=== PATIENT | male | born 1965 | race Caucasian/White ===

== ENCOUNTER 2018-06-18 14:22 | Emergency (ER) | payer BC, SELFPAY ==
[2018-06-18 14:23] VITALS: BP 164/110; PULSE 73; RESP 16; TEMP 36.3; O2SAT 97; BMI 29.5
[2018-06-18 15:23] LABS: Absolute Lymphocyte Count 2.17 X10^3/ul (0.83-4.51); Absolute Neutrophil Count 7.1 X10^3/uL (2.0-7.7); Basophil# 0.06 X10^3/uL; Basophil% 0.5 % (0-1); Eosinophil# 0.91 X10^3/uL; Eosinophils% 8.1 % (0-5); Hematocrit 53.1 % (40-54); Lymphocyte # 2.17 X10^3/ul (4.0); Lymphocyte % 19.2 % (19-41); Mean Corp Hgb Conc 34.1 g/gl (32-36); Mean Corpuscular Hgb 31.9 pg (27.0-32.0); Mean Corpuscular Volume 93.7 fL (80-94); Mean Platelet Vol. 9.7 fl (6.2-12.0); Monocyte# 1.02 X10^3/uL; Neutrophil # 7.09 X10^3/uL (2.7-7.7); Neutrophil % 62.8 % (47-70); Platelet Count 271 K/mm3 (150-450); RBC Distribution Width CV 12.7 % (11.6-14.6); RBC Distribution Width SD 43.3 fl (35.1-43.9); Red Blood Count 5.67 M/mm3 (4.6-6.2); White Blood Count 11.3 K/mm3 (4.4-11.0)
[2018-06-18 15:26] LABS: Hemoglobin 18.1 g/dl (13.0-16.5); POSITIVE COUNT NO; POSITIVE DIFFERENTIAL NO; POSITIVE MORPHOLOGY NO
[2018-06-18 15:33] LABS: Anion Gap 7 (5-15); BUN 11 mg/dL (7-18); Calcium,Total 8.9 mg/dL (8.5-10.1); Chloride 106 mmol/L (98-107); EST Glomerular Filtration Rate 83 mL/min (>60); Est Glom Filt Rate - Afr Amer 101 mL/min (>60); Estimated Creatinine Clearance 97.66 ml/min; Glucose 99 mg/dL (74-106); Potassium 4.4 mmol/L (3.5-5.1); Sodium Level 139 mmol/L (136-145)
--- NOTE | 2018-06-18 16:26 | CT_ITS ---
STUDY: CT ABDOMEN AND PELVIS WITH CONTRAST REASON FOR EXAM: Male, 52 years old. Left upper quadrant pain RADIATION DOSAGE (If Supplied By Facility): CTDIvol = ( 15.93 ) mGy, DLP = ( 1723.30 ) mGycm TECHNIQUE: Transaxial images were obtained from the dome of the diaphragm to the symphysis pubis without oral contrast. 100 ml of Isovue 370 contrast was administered. Sagittal and coronal images were reconstructed. Individualized dose optimization techniques were used for this CT. COMPARISON: November 18, 2015 CT abdomen FINDINGS: The visualized lung bases are unremarkable. The visualized portions of the heart are within normal limits. Normal liver. Normal gallbladder and extrahepatic biliary system. Normal spleen. Normal pancreas. Normal bilateral adrenal glands. There is a 0.6 cm cyst of the lower pole of the right kidney. Normal left kidney. Normal visualized stomach. Normal small intestine. Normal colon. The appendix is visualized and appears normal. Normal abdominal aorta. Normal inferior vena cava. Normal retroperitoneum. There is nodular wall thickening and 1.2 cm mass of the urinary bladder wall, series 3 image 106/127 There are prostatic calcifications. There is no free fluid in the abdomen or pelvis. There is a small umbilical hernia containing fat. Normal osseous structures. CT/Abdomen/Pelvis W IV Cont ONLY IMPRESSION: Nodular thickening and mass of the wall of the urinary bladder. Cystoscopic correlation recommended. No hydronephrosis. No obstruction. Electronically Signed: Néstor Evans MD at 17:25 EST , Service support ,
--- NOTE | 2018-06-18 16:26 | CT_ITS ---
STUDY: CTA CHEST REASON FOR EXAM: Male, 52 years old. Shortness of breath. RADIATION DOSAGE (If Supplied By Facility): CTDIvol = ( 15.93 ) mGy, DLP = ( 1723.30 ) mGycm TECHNIQUE: The examination was performed with the intravenous administration of 100 ml of Isovue 370 contrast material. Post-processing of the angiographic images was performed, with multiplanar reformation and 3D reconstruction. Individualized dose optimization techniques were used for this CT. COMPARISON: None. FINDINGS: There is limited enhancement of the main pulmonary artery and right and left pulmonary arteries. There is limited enhancement of the bilateral peripheral pulmonary arteries. There is no demonstrated pulmonary embolism. There is aneurysmal dilatation of the ascending aorta. The transverse diameter of the ascending aorta measures 41 mm's. There is no demonstrated aortic dissection. Normal heart and pericardium. Normal mediastinum. Normal hilar regions. Normal visualized trachea and bronchi. The lungs are well expanded. There is a 0.3 cm left upper lobe nodule, coronal series 5 image 113/167 Normal pleura. Normal chest wall structures. Normal osseous structures. Normal visualized upper abdomen. CT/CTA Chest W/WO Contrast IMPRESSION: CTA chest examination, without a demonstrated pulmonary embolism or arterial dissection. Suboptimal enhancement of the pulmonary arteries. Aneurysmal dilatation of the ascending aorta. Electronically Signed: Néstor Evans MD at 17:37 EST , Service support ,
[2018-06-18 16:34] LABS: Lipase 201 U/L (73-393)
[2018-06-18 16:39] LABS: AST(SGOT) 29 U/L (15-37); Alanine Aminotransfer ALT/SGPT 53 U/L (16-61); Albumin, Serum 3.9 g/dL (3.2-5.0); Alkaline Phosphatase 74 U/L (45-117); Bilirubin, Direct 0.18 mg/dL (0.00-0.30); Globulin 4.3 g/dL (2.2-4.2); Protein, Total 8.2 g/dL (6.4-8.2)
--- NOTE | 2018-06-18 16:41 | ED.VISSUMM ---
- ER Visit Summary Date of Service: 06/18/18 Chief Complaint: Abdominal pain History of Present Illness: The patient is a 52 M presenting with abdominal pain x 1 week. Patient has left upper quadrant abdominal pain. He has had cough prior to this starting. He denies nausea, vomiting, diarrhea. He states the pain is worse with eating, coughing and different positions. He has pain with deep inspiration. He had travel to [place] at the first part of the month. Denies chest pain or shortness of breath. Physical Examination: Vitals are stable. Patient is afebrile. Alert no acute distress. HEENT exam is unremarkable. Neck is supple. Lungs are clear and equal bilaterally. Heart is regular rate and rhythm. Abdomen is soft left upper quadrant tenderness with no rebound or guarding Extremities are unremarkable. Skin is warm and dry. No rash No focal neurologic deficit. Remainder of exam is unremarkable. Emergency Department Course and Treatment: Patient was given morphine, Zofran IV. CBC normal except white count 11.3, hemoglobin 18.1. Chemistries unremarkable. Liver lipase are normal. Urinalysis shows trace blood, 0 white cells, 0-5 red blood cells. CTA chest without a demonstrated pulmonary embolism or arterial dissection. Suboptimal enhancement of the pulmonary arteries. Aneurysmal dilatation of the ascending aorta. CT abdomen/pelvis shows nodular thickening and mass of the wall of the urinary bladder. Cystoscopic correlation recommended. No hydronephrosis. No obstruction. On reevaluation, patient is resting comfortably. He has a scheduled appointment with his primary care physician tomorrow. He is advised to follow-up with Dr. Lewis from vascular surgery and Dr. Moreira, urology. He is given prescription for Pepcid and Tessalon. He states the pain is much worse when he coughs. He is advised to return to ED for worsening complaints. Disposition: Discharge home Impression: Abdominal pain This note was generated with [employer] dictation software. It may contain incorrect words, spelling, and punctuation that were not noted in review of the chart prior to signing ED Disposition - Plan for ED Patient: Chief Complaint: Abd Pain Instructions: ED Abdominal Pain Unkn Cause Prescriptions: Benzonatate [Tessalon Perle] 200 mg PO TID PRN PRN #20 capsule PRN Reason: Cough Famotidine [Pepcid] 20 mg PO BID #28 tablet Referrals: Erasmo Lewis MD [STAFF PHYSICIAN] - Live Moerira MD [STAFF PHYSICIAN] - Corrie Zuluaga DO [Primary Care Provider] -
[2018-06-18] MEDS: Morphine 4 MG/ML Syringe IV (17:09)
[2018-06-18] MEDS: Ondansetron 4 MG/2 ML Vial IV (17:09)
[2018-06-18 17:22] LABS: Bacteria 0 SEEN /hpf (None Seen); Mucous, Urine 0 SEEN /hpf (<or=2+); Squamous Epithelial Cells - UA 0 SEEN /hpf (0-5); White Blood Cells 0 SEEN /hpf (0-5)
[2018-06-18 17:46] LABS: Color, Urine Yellow (Yellow); Glucose, Dipstick Normal (Normal); Ketone-Dipstick Negative (Negative); Leukocyte Esterase-Dipstick Negative /ul (Negative); Nitrite-Dipstick Negative (Negative); Occult Blood-Urine 25 /ul (Negative); Protein-Dipstick 30 mg/dl (Negative); Urine Bilirubin Dipstick Negative (Negative); Urine Clarity Clear (Clear); Urine Urobilinogen Normal (Normal)
[2018-06-18 18:00] LABS: Red Blood Cells-Urine 0-5 SEEN /hpf (0-5)
[2018-06-18 18:12] VITALS: BP 132/96; PULSE 72; RESP 16; O2SAT 95
--- NOTE | 2018-06-18 18:32 | ED.DEP ---
ED Disposition - Plan for ED Patient: Chief Complaint: Abd Pain Instructions: ED Abdominal Pain Unkn Cause Prescriptions: Benzonatate [Tessalon Perle] 200 mg PO TID PRN PRN #20 capsule PRN Reason: Cough Famotidine [Pepcid] 20 mg PO BID #28 tablet Referrals: Corrie Zuluaga DO [Primary Care Provider] - Erasmo Lewis MD [STAFF PHYSICIAN] - Live Moreira MD [STAFF PHYSICIAN] -
== END 2018-06-18 18:48 | disposition home or self-care (01) ==
PROVIDERS: Emergency Medicine; Emergency Provider Emergency Medicine; Family Provider Internal Medicine; PCP Internal Medicine
DX: R10.12 Left upper quadrant pain (principal); R05 Cough
CPT/HCPCS: 71275; 74177; 80048; 80076; 81001; 83690; 85025; 96374; 96375; 99283; Q9967; A4216; J2405

== ENCOUNTER → 2018-06-19 11:54 | Outpatient (CLI) | payer BC, SELFPAY ==
[2018-06-18 14:23] VITALS: BMI 29.5
--- NOTE | 2018-06-19 | CYSPIN_PTH ---
PATIENT: OCHOA MICHEL LOC: [facility] U#:[id number] AGE/SX: 59/M ROOM: RE06/19/[address]: Dr. Corrie Zuluaga DO : 1965 BED: DIS: SPEC #: [id number] RECD: 06/19/18 14:08 STATUS: THOMAS BOB #: [id number] BRAXTON: 06/19/18 00:[address]: Crorie Zuluaga DEPT: CYTOLOGY RECD BY: Aiden Donahue Tissues: Urine Procedures: Pap Stain (control) Special Stain Group II Cytospin Fluid HEADER OPERATION: Not noted PRE-OP DIAGNOSIS: Bladder mass TISSUE SUBMITTED: Urine for cytology DIAGNOSIS CYTOLOGY Bladder mass, urine for cytology, cytospin: Atypical degenerative cells present. See cytology study. CE:eric 06/20/18 COMMENT Case has been reviewed in consultation with Dr. Jimenez who concurs with the above diagnosis. IDC:AM CYTOLOGY STUDY Slides are reviewed. Sections demonstrate degenerative cellular debris and degenerative urothelial cells with atypia. The cytologic findings may reflect a degenerative urothelial neoplasm versus reactive process. Clinical correlation is recommended. CYTOLOGY GROSS Received is 50 ml of dark gold fluid labeled with the patient's name and and designated per the requisition as urine. Submitted for cytology preparation. / 06/19/18 TC:5 CPT: 00067
--- NOTE | 2018-06-19 11:59 | RAD_ITS ---
STUDY: X-RAY - UNILATERAL RIBS ( LEFT ) WITH CHEST REASON FOR EXAM: Male, 52 years old. Left rib pain TECHNIQUE - RIBS: 4 view(s) of the ribs. TECHNIQUE - CHEST: 1 view COMPARISON: None. FINDINGS - RIBS: Normal visualized ribs without a demonstrated fracture. FINDINGS - CHEST: The lungs are clear and expanded. There is no demonstrated pleural abnormality. Normal size heart. Normal mediastinum and jayashree. Normal visualized pulmonary arteries. Normal visualized aortic arch and descending thoracic aorta. Normal visualized thoracic spine. Normal visualized ribs, clavicles, and shoulders. There is no demonstrated abnormality of the visualized soft tissue structures of the upper abdomen. RAD/Ribs Uni Min 3V w/PA Chest IMPRESSION: RIBS: Normal x-ray examination of the ribs. No rib fractures CHEST: Normal x-ray examination of the chest. Electronically Signed: Sergio Pearson MD at 2:21 EST Tel , Service support ,
[2018-06-19 13:34] LABS: Cytology, Body Fluid / CSF SEE PATHOLOGY REPORT
== END ==
PROVIDERS: Family Provider Internal Medicine; PCP Internal Medicine; Referring Provider Internal Medicine; Visit Provider Internal Medicine
DX: R07.81 Pleurodynia (principal); N32.89 Other specified disorders of bladder
CPT/HCPCS: 71101; 88108; 88313

== ENCOUNTER 2018-07-26 13:52 | Day surgery (SDC) | payer BC, SELFPAY ==
[2018-07-19 11:40] VITALS: BP 144/88; PULSE 66; RESP 16; TEMP 36.7; O2SAT 96; BMI 30.2
--- NOTE | 2018-07-19 11:56 | SDCEKG_ITS ---
Test Reason : Blood Pressure : / mmHG Vent. Rate : 062 BPM Atrial Rate : 062 BPM P-R Int : 154 ms QRS Dur : 092 ms QT Int : 454 ms P-R-T Axes : 045 042 042 degrees QTc Int : 460 ms Normal sinus rhythm Normal ECG Confirmed by SUELLEN SLADE, FRANCIS ([id number]), magazine editor RADHA MOORE ([id number]) on 07/22/2018 2:51:49 PM Referred By: Live Moreira Confirmed By:FRANCIS KEN MD
[2018-07-19 12:38] LABS: Hematocrit 49.5 % (40-54); Mean Corp Hgb Conc 34.3 g/gl (32-36); Mean Corpuscular Hgb 32.2 pg (27.0-32.0); Mean Corpuscular Volume 93.8 fL (80-94); Mean Platelet Vol. 9.9 fl (6.2-12.0); Platelet Count 254 K/mm3 (150-450); RBC Distribution Width CV 12.9 % (11.6-14.6); RBC Distribution Width SD 43.2 fl (35.1-43.9); Red Blood Count 5.28 M/mm3 (4.6-6.2)
[2018-07-19 12:39] LABS: Scan Indicated on CBC? Y/N NO
[2018-07-19 12:46] LABS: International Normalized Ratio 0.9; Partial Thromboplast Time 27.5 Seconds (24.1-36.2); Prothrombin Time (Protime)PT. 12.4 SECONDS (11.7-14.9)
--- NOTE | 2018-07-26 | IMM_PTH ---
PATIENT: OCHOA MICHEL LOC: [facility] [place] U[place][id number] AGE/SX: 53/M ROOM: RE07/26/[address]: Dr. Live Moreira MD : 1965 BED: DIS: 07/26/2018 SPEC #: [id number] RECD: 07/30/18 12:18 STATUS: THOMAS REZach #: [id number] BRAXTON: 07/26/18 00:[address]: Live Moreira DEPT: IMMUNOHISTOCHEMISTRY RECD BY: Adeola Brush ENTERED: 07/30/18 12:19 SP TYPE: IMMUNO OTHR DR: Dr. Corrie Zuluaga, Tissues: Urinary bladder, NOS Procedures: CK8 (initial) SMA (add) CD34 (add) DESMIN (add) Vimentin (add) S-100 (add) PHYSICIAN & INSTITUTION [place] [id number] SPECIMEN INFORMATION: Tissue Source: Bladder tumor Clinical Info: Bladder tumor Specimen Number: [id number] #1 CPT code: 77270, 19194 x5 METHODOLOGY: Deparaffinized sections of prefer/formalin-fixed tissue or PAP/DQ stained slides are incubated with monoclonal/polyclonal antibodies/oligonucleotide probes. Localization is made via biotin free immunoperoxidase method. Appropriate controls are performed and reacted as expected. Results on target cell population are indicated in the following table: RESULTS: ANTIBODY / CLONE RESULT Block 1 CK8 ([id number]) negative Actin (1A4) positive Desmin (CE-R-11) positive Vimentin (V9) positive S-100 (4C4.9) negative CD34 (QBEnd-10) negative These tests were developed and their performance characteristics determined by [facility]. They may not have been cleared or approved by the U.S. Food and Drug Administration. The FDA has determined that such clearance or approval is not necessary. INTERPRETATION: Bladder tumor, TUR: Consistent with benign smooth muscle lesion, favor leiomyoma. SJ:eric 07/30/18
--- NOTE | 2018-07-26 08:22 | HP.PCM_ITS ---
History and Physical Date of Admission: 07/26/18 53-year-old male who is having coughing pain abdominal pain had a CAT scan done emergency room CAT scan demonstrated a small 1.5 nodule in his bladder comes in today for an evaluation and a cystoscopy. ALLERGIES: None MEDICATIONS: Famotidine 20 mg tablet PSH: None NON- PSH: Back Surgery (Unspecified) PMH: Bladder disorder, unspecified NON- PMH: Type 2 diabetes mellitus without complications Immunizations: None FAMILY HISTORY: Diabetes - Runs in Family SOCIAL HISTORY: Marital Status: Preferred Language: Citizen Of [place]; Race: White Current Smoking Status: Patient has never smoked. Tobacco Use Assessment Completed: Used Tobacco in last 30 days? Smoking cessation counseling was provided. Does not use smokeless tobacco. Moderate Drinker. Does not drink caffeine. Has not had a blood transfusion. REVIEW OF SYSTEMS: Constitutional: Patient denies fever, chills, weight loss, and weight gain. Eyes: Patient denies glaucoma, cataracts, and blurry vision. Ears, Nose, Mouth, Throat: Patient denies hearing loss, sinus infections, and sleep apnea. Cardiovascular: Patient denies chest pains, swollen ankles, irregular heartbeat, and pacemaker/defib. Respiratory: Patient denies shortness of breath, wheezing, oxygen, and cpap machine. Gastrointestinal: Patient denies abdominal pain, diarrhea, constipation, nausea, and vomiting. Genitourinary: Patient denies frequent urination, urinary retention, get up at night to void, leakage of urine, painful urination, blood in the urine, frequent uti's, history of stones, difficulty starting stream, weak stream/scanty, and bedwetting. Musculoskeletal: Patient denies sore muscles, back pain, and gout. Integumentary/Skin: Patient denies rash, skin cancer, and chronic itching. Neurological: Patient denies falling/unsteady, paralysis, and stroke/tia. Hematologic/Lymphatic: Patient denies abnormal bleeding, blood transfusion, swollen lymph nodes, deep venous thrombosis, and pulmonary embolism. VITAL SIGNS: 07/08/2018 10:55 AM Weight 228 lb / 103.42 kg Height 72 in / 182.88 cm BMI 30.9 kg/m? - BMI Counseling was provided. PHYSICAL EXAMINATION: Scrotum: No lesions. No edema. No cysts. No warts. Epididymides: Right: no spermatocele, no masses, no cysts, no tenderness, no induration, no enlargement. Left: no spermatocele, no masses, no cysts, no tenderness, no induration, no enlargement. Testes: No tenderness, no swelling, no enlargement left testes. No tenderness, no swelling, no enlargement right testes. Normal location left testes. Normal location right testes. No mass, no cyst, no varicocele, no hydrocele left testes. No mass, no cyst, no varicocele, no hydrocele right testes. Urethral Meatus: Normal size. No lesion, no wart, no discharge, no polyp. Normal location. Penis: Circumcised, no warts, no cracks. No dorsal Peyronie's plaques, no left corporal Peyronie's plaques, no right corporal Peyronie's plaques, no scarring, no warts. No balanitis, no meatal stenosis. MULTI-SYSTEM PHYSICAL EXAMINATION: Constitutional: Well-nourished. No physical deformities. Normally developed. Good grooming. Neck: Neck symmetrical, not swollen. Normal tracheal position. Respiratory: No labored breathing, no use of accessory muscles. Cardiovascular: Normal temperature, normal extremity pulses, no swelling, no varicosities. Lymphatic: No enlargement of neck, axillae, groin. Skin: No paleness, no jaundice, no cyanosis. No lesion, no ulcer, no rash. Neurologic / Psychiatric: Oriented to time, oriented to place, oriented to person. No depression, no anxiety, no agitation. Gastrointestinal: No mass, no tenderness, no rigidity, non obese abdomen. Eyes: Normal conjunctivae. Normal eyelids. Ears, Nose, Mouth, and Throat: Left ear no scars, no lesions, no masses. Right ear no scars, no lesions, no masses. Nose no scars, no lesions, no masses. Normal hearing. Normal lips. Musculoskeletal: Normal gait and station of head and neck. PAST DATA REVIEWED: Source Of History: Patient Lab Test Review: Basic Metabolic Panel (BMP), CBC Records Review: Previous Doctor Records, Previous Hospital Records, Previous Patient Records Urine Test Review: Urinalysis X-Ray Review: C.T. Abdomen/Pelvis: Reviewed Films. Reviewed Report. Discussed With Patient. PROCEDURES: Flexible Cystoscopy - 25930 Risks, benefits, and some of the potential complications of the procedure were discussed at length with the patient including infection, bleeding, voiding discomfort, urinary retention, fever, chills, sepsis, and others. All questions were answered. Informed consent was obtained. Antibiotic prophylaxis was given. Sterile technique and intraurethral analgesia were used. Meatus: Normal size. Normal location. Normal condition. Urethra: No strictures. External Sphincter: Normal. Verumontanum: Normal. Prostate: Non-obstructing. Mild hyperplasia. Bladder Neck: Non-obstructing. Ureteral Orifices: Normal location. Normal size. Normal shape. Effluxed clear urine. Bladder: No trabeculation. Normal mucosa. No stones. did not see the tumor visible on ct scan? 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 The general risks of the operative procedure and the perioperative period were discussed with the patient at length and in detail including, infection, wound infection, sepsis, renal failure, internal or external bleeding, intraoperative bowel, organ or vascular injuries, postoperative formation of scar tissue, the need for blood transfusions, deep venous thrombosis or blood clots, pulmonary embolus, and others. All of the patient's questions were answered and he voiced an understanding of these risks, benefits and possible complications. The patient gave fully informed consent to proceed with the procedure. Also discussed the risks of mitomycin C for post TUR infusion. Notes: 53-year-old male CAT scan demonstrated nodule in the bladder, on cystoscopy today I could not find the nodule but it seems so real on CAT scan they can a set him up for cystoscopy under anesthesia biopsies and possible resection of this mass if identified. Discussed with the patient possibility is a benign etiology which is rare or malignant etiology but is more likely. He is not a smoker but did have significant secondhand exposure to smoking growing up.
[2018-07-26 14:16] VITALS: BP 146/93; PULSE 88; RESP 18; TEMP 36.9; O2SAT 98; BMI 30.2
[2018-07-26] MEDS: Cefazolin 2 GM in 0.9% Normal Saline 100 ML IV (15:12)
--- NOTE | 2018-07-26 15:40 | BLA_PTH ---
PATIENT: OCHOA MICHEL LOC: [facility] – [place] U#:[id number] AGE/SX: 53/M ROOM: RE07/26/[address]: Dr. Live Moreira MD : 1965 BED: DIS: 07/26/2018 SPEC #: [id number] RECD: 07/29/18 07:20 STATUS: THOMAS BOB #: [id number] BRAXTON: 07/26/18 15:[address]: Live Moreira DEPT: SURGICAL PATHOLOGY RECD BY: Sujatha Cardenas ENTERED: 07/29/18 09:45 SP TYPE: BLADDER BX OTHR DR: Dr. Corrie Zuluaga DO Tissues: Urinary bladder, NOS Procedures: Surgery Specimen Level V HEADER OPERATION: Cysto, transurethral resection bladder, medium size PRE-OP DIAGNOSIS: Nodule in the bladder POST-OP DIAGNOSIS: Bladder tumor TISSUE SUBMITTED: Bladder tumor MICROSCOPIC DIAGNOSIS Bladder tumor, TUR: Consistent with smooth muscle lesion, favor leiomyoma. Focal mild chronic inflammation. Negative for malignancy. See comment. MICK:eric 07/30/18 COMMENT Immunohistochemistry ([id number]) supports the above diagnosis. Significant atypia is not seen. Overlying urothelial epithelium is unremarkable. Please make reference to previous specimen ([id number]) bladder mass, urine for cytology with diagnosis of atypical degenerative cells present. Correlation with clinical, endoscopic findings and appropriate follow up are necessary. Case has been reviewed in consultation with Dr. Jimenez who concurs with the above diagnosis. IDC:AM MICROSCOPIC DESCRIPTION Slides are reviewed. GROSS DESCRIPTION Received in fixative is one container labeled with the patient's name and designated bladder tumor. The specimen consists of multiple irregular fragments of light beckman soft tissue that in aggregate measure 3 x 2.5 x 0.2 cm. The specimen is totally submitted in two cassettes. / AM:eric 07/29/18 TC:1 CPT: 62182
--- NOTE | 2018-07-26 15:40 | DCINST_ITS ---
Discharge Diet: No Restrictions Discharge Activity: Return to Normal Activity, May Not Drive - for 2 days. Additional Activity Instructions:: f you have a catheter, remove on ___. If you have any problems after catheter is removed, call [phone] and ask for your doctor to be paged. Please be aware that pain medications may cause nausea. You should typically eat light foods as you take your pain medication. Pain medication may cause constipation, if this is a problem for you, please discuss with your doctor. Allergies/Adverse Reactions: Allergies No Known Allergies Allergy (Verified 07/19/18 11:00) Medications to take at Discharge Ciprofloxacin [Cipro] 500 mg PO BID #6 tab 07/26/18 Hydrocodone/Acetaminophen [[place] 5-325 Tablet] 1 ea PO Q4H PRN PRN 5 Days #14 tab 07/26/18 Primary Care Physician: Corrie Zuluaga DO [Primary Care Provider] - Test Results: Test results from this visit will be discussed in further detail at your follow- up appointment, if applicable. Please Follow Up With: Live Moreira MD When: in 2 weeks, please call to make an appointment.
--- NOTE | 2018-07-26 15:44 | OP.PCM_ITS ---
Report of Operation Date of Procedure: 07/26/18 Pre-Operative Diagnosis: Bladder mass 2.5 cm Post-Operative Diagnosis: Same Surgery/Procedure Performed:: Transurethral resection of a medium-sized bladder mass Description of Surgical Findings:: 53-year-old male who underwent a CAT scan and on CAT scan was found to have a nodule in the the bladder this is an unusual smooth nodule within the wall the bladder was in the anterior right dome of the bladder on cystoscopy quite difficult to see also had some difficulty distending the bladder completely so recommended that we taken to the operating room to do a resection of this bladder mass seen on CAT scan quite clearly. Discussed the possible etiologies between benign tissue cancerous tissue carcinoma etc. The risk and benefits of the surgery was discussed with the patient including plain infection and bleeding. 53-year-old male taken back to the operating room at the smooth induction of general anesthesia he was placed in dorsolithotomy position I went the bladder first with a 21 [place] rigid cystourethroscope the entire length the urethra was normal pendulous urethra is normal bulbar urethra normal sphincter was intact no strictures scar tissue along the urethra into the prostate had some mild normal bilateral hypertrophy no no enlarged prostate the median lobe was normal no [place] bladder neck once inside the bladder identified the left and right ureteral orifice the these were clear the trigone was clear he had some mild trabeculation in the bladder but not heavy I then a distended bladder real large and then went to get the bladder nice and distended then you could see a nodule in the dome of the bladder on the anterior surface of this with this knowledge was only visible after complete distention of the bladder I then decided just to resect this with the resectoscope so I switched over to the 24 [place] noncontinuous flow resectoscope I introduced into the bladder using the obturator lens I then switched in the resectoscope I distended the bladder again had to put a little pressure on the anterior abdominal wall I took a picture of the tumor before this was resected this was printed out and so the family and then I resected a side cutting into this nodule we could see that there was a tumor there again difficult to tell if this was a malignant tumor or a benign tumor that I did resected all the way down to the bladder muscles appear to be a complete resection of whatever this was and then I cauterized extensively that all the nodule pieces were evacuated out of the bladder and there were sent off as a specimen to the pathologist. At this point still no clear diagnosis but the cyst but the tumor was clear he is resected down to the bladder muscles and I will see him back in about a week or 2 to review the pathology he will go home without a catheter if he is able to urinate. Type of Anesthesia:: General - Admit VTE Documentation VTE Present on Admission: No VTE Mechan Device Prophylaxis: SCD's
[2018-07-26 15:47] VITALS: BP 135/98; BP 146/93; PULSE 90; RESP 16; TEMP 36.6; O2SAT 94
[2018-07-26 16:00] VITALS: BP 135/99; BP 146/93; PULSE 84; RESP 18; O2SAT 96
[2018-07-26 16:15] VITALS: BP 141/97; BP 146/93; PULSE 79; RESP 16; O2SAT 95
[2018-07-26 16:30] VITALS: BP 142/96; BP 146/93; PULSE 78; RESP 16; TEMP 37.5; O2SAT 98
[2018-07-26 18:18] VITALS: BP 141/92; BP 146/93; PULSE 66; RESP 18; TEMP 36.6; O2SAT 94
== END 2018-07-26 18:25 | disposition home or self-care (01) ==
LOC: SDC 13:54 → AC 13:55
PROVIDERS: Anesthesiology; Family Provider Internal Medicine; PCP Internal Medicine; Referring Provider Urology; Visit Provider Urology
PROC: 0TBB8ZZ Excision of Bladder, Via Natural or Artificial Opening Endoscopic (ICD-10-PCS; CPT 52235; principal; 2018-07-26 15:30)
DX: N30.20 Other chronic cystitis without hematuria (principal); D41.4 Neoplasm of uncertain behavior of bladder; E11.9 Type 2 diabetes mellitus without complications; R05 Cough
CPT/HCPCS: 00912; 52235; 85027; 85610; 85730; 88305; 88307; 88341; 88342; 93005; J7120; J2405